=== PATIENT | male | born 1975 ===

== ENCOUNTER 2020-06-24 14:32 | Outpatient (REF) | payer OTHER, SELFPAY | END 2020-06-24 14:33 | disposition home or self-care (01) | LOC: HO.LAB 14:32 | PROVIDERS: PCP Student in an Organized Health Care Education/Training Program; Visit Provider Internal Medicine | DX: Z20.828 Contact with and (suspected) exposure to other viral communicable diseases (principal) | CPT/HCPCS: C9803; U0003 ==

== ENCOUNTER 2023-05-31 08:15 | Outpatient (REF) | payer OTHER, SELFPAY ==
[2023-05-31 12:07] LABS: Anion Gap 16 (12-20); Blood Urea Nitrogen 11 mg/dL (9-16); Carbon Dioxide 24 mmol/L (22-29); Chloride 100 mmol/L (96-108); Cholesterol 123 mg/dL (<200); Estimated Glomerular Filt Rate > 60; Glucose Random 147 mg/dL (60-115); HDL Cholesterol 38 mg/dL (>40); LDL Cholesterol Calculated 70 mg/dL (<100); Potassium 4.1 mmol/L (3.3-5.1); Sodium 136 mmol/L (135-145); Triglycerides 76 mg/dL (<150)
== END 2023-05-31 08:16 | disposition home or self-care (01) ==
LOC: HO.HHCL 08:15
PROVIDERS: Visit Provider Student in an Organized Health Care Education/Training Program
DX: E11.9 Type 2 diabetes mellitus without complications (principal)
CPT/HCPCS: 36415; 80048; 80061

== ENCOUNTER → 2023-09-05 14:17 | Outpatient (BNVA) | payer OTHER, SELFPAY | PROVIDERS: PCP Student in an Organized Health Care Education/Training Program; Visit Provider Nurse Practitioner Family ==

== ENCOUNTER 2023-10-05 08:07 | Outpatient (REF) | payer OTHER, SELFPAY ==
[2023-10-05 12:13] LABS: Creatinine Urine 105.03 mg/dL; Microalbum/Creatinine Ratio Ur 11.4 ug/mg cr (<30)
== END 2023-10-05 08:08 | disposition home or self-care (01) ==
LOC: HO.HHCL 08:07
PROVIDERS: Visit Provider Student in an Organized Health Care Education/Training Program
DX: E11.9 Type 2 diabetes mellitus without complications (principal)
CPT/HCPCS: 82043; 82570

== ENCOUNTER 2023-11-21 08:16 | Outpatient (REF) | payer OTHER, SELFPAY ==
[2023-11-21 12:13] LABS: Creatinine Urine 65.77 mg/dL; Microalbum/Creatinine Ratio Ur 10.6 ug/mg cr (<30)
[2023-11-21 12:14] LABS: Estimated Average Glucose 148 mg/dL; Hemoglobin A1C 180.6791 umol/L; Hemoglobin A1c % 6.8 % (<6.0)
[2023-11-21 12:19] LABS: Alanine Aminotransferase 65 U/L (0-40); Albumin Level 4.6 g/dL (3.5-5.0); Alkaline Phosphatase 48 U/L (39-117); Anion Gap 13 (12-20); Aspartate Amino Transferase 33 U/L (5-37); Bilirubin Direct 0.2 mg/dL (0.0-0.5); Bilirubin Total 0.4 mg/dL (0.0-1.0); Blood Urea Nitrogen 16 mg/dL (9-16); Calcium 9.3 mg/dL (8.4-10.2); Carbon Dioxide 27 mmol/L (22-29); Chloride 99 mmol/L (96-108); Cholesterol 129 mg/dL (<200); Estimated Glomerular Filt Rate > 60; Glucose Random 132 mg/dL (60-115); HDL Cholesterol 39 mg/dL (>40); LDL Cholesterol Calculated 64 mg/dL (<100); Potassium 4.3 mmol/L (3.3-5.1); Sodium 135 mmol/L (135-145); Total Protein 7.6 g/dL (6.5-8.0); Triglycerides 134 mg/dL (<150)
== END 2023-11-21 08:17 | disposition home or self-care (01) ==
LOC: HO.HHCL 08:16
PROVIDERS: Visit Provider Student in an Organized Health Care Education/Training Program
DX: E11.9 Type 2 diabetes mellitus without complications (principal)
CPT/HCPCS: 36415; 80048; 80061; 80076; 82043; 82570; 83036

== ENCOUNTER 2023-12-21 12:44 | Outpatient (AMB) | payer OTHER, SELFPAY ==
[2023-12-21 12:52] VITALS: BP 118/72; PULSE 83; RESP 17; O2SAT 98; BMI 39.5
--- NOTE | 2023-12-21 12:52 | A.OFFVIS_ITS ---
Vital Signs 12/21/23 12:52 Height 5 ft 2 in Weight 216 lb 2 oz BMI 39.5 BP 118/72 Blood Pressure Location Rt brachial Position Sitting Respiration 17 Pulse 83 Pulse Source Pulse Oximeter Pulse Oximetry (%) 98 Oxygen Delivery Method Room Air Intake Visit Reasons: ENP OMAR - Confirmed Intake Note: Pt presents to the office for new pt evaluation for snoring, morning headaches and gasping for air throughout the night. Switchboard Operator Supervisor Required: Yes Switchboard Operator Supervisor Name: Isabela Marquis Allergies No Known Allergies Allergy (Verified 09/05/23 14:21) Medication List - Last Reconciled 12/21/23 by Peyton Aponte MD aspirin 81 mg PO DAILY bisacodyl (Dulcolax (bisacodyl)) 20 mg (4 x 5 mg) PO ONCE 1 day blood sugar diagnostic (FreeStyle Lite Strips) As directed ergocalciferol (vitamin D2) 1,250 mcg PO QWEEK glipizide 5 mg PO BID hydrochlorothiazide 25 mg PO DAILY lancets (TRUEplus Lancets) As directed lisinopril 20 mg PO DAILY metformin 1,000 mg PO BID polyethylene glycol 3350 (Miralax) 238 grams PO ONCE rosuvastatin 5 mg PO DAILY HPI Comments Details: Isabeal Salazar- a certified gate technician helped during todays evaluation. 48y/o male comes for sleep evaluation . Main complaints- Sleep questionnaire- Difficulty falling asleep-yes Difficulty staying asleep-yes Number of arousals-3 Snoring-yes/ Witnessed apneas-no Gasping arousals-no Nocturia-yes/ GERD-/no Vivid dreams-no Acting out dreams -no Abnormal behavior in sleep-no ABnormal movements in sleep-yes- leg cramps , wakes him up Morning headaches-yes Excessive daytime sleepiness-yes Daytime naps- yes restless legs- yes Hallucinations- no Sleep study-no Sleep Hygiene- Sleep time- 11pm Wake time -8am coffee/stimulant use-1 cup am and 1 cup 8 pm Phone Electronics use- yes Exercise-no Bedroom comfort -yes [facility] Medical History (Updated 12/21/23 @ 13:21 by Peyton Aponte MD) Hypersomnia Snoring Leg cramps, sleep related Diabetes mellitus HTN (hypertension) Hyperlipidemia Family History (Updated 12/21/23 @ 12:58 by Isabela Salazar CMA) Mother No problems noted. Father Diabetes Depression Cardiovascular disease Social History (Updated 12/21/23 @ 12:59 by Isabela Salazar CMA) Household Members: Other Household Members Other:: Siblings, Sister Kendal, brother Drew Housing: Apartment Alcohol intake: never Patient Tobacco Use Status: Never used Tobacco Substance Use Type: Marijuana Physical Exam Vital Signs: Last Vital Signs Pulse 83 12/21/23 12:52 Resp 17 12/21/23 12:52 BP 118/72 12/21/23 12:52 Pulse Ox 98 12/21/23 12:52 Oxygen Delivery Method Room Air 12/21/23 12:52 BMI result Body Mass Index 39.5 Const General: cooperative, healthy appearing and comfortable Nutritional Appearance: obese Orientation/consciousness: patient oriented x3 Limitations: no limitations Eyes Pupils: Equal, round and reactive pupils present Neuro Other: Mallampatti grade 4 General: patient oriented x3, gait normal, tone normal, moves all extremities and no focal motor deficits Cranial nerves: Yes Equal, round and reactive pupils present, Yes Bilaterally intact EOM present and Yes Normal facial strength present Cognition (Neuro): normal cognition Gait exam (Neuro): Normal gait present Assessment & Plan Assessment & Plan (1) Snoring: Code(s): R06.83 - Snoring Category: Medical (2) Hypersomnia: Code(s): G47.10 - Hypersomnia, unspecified Category: Medical (3) Leg cramps, sleep related: Code(s): G47.62 - Sleep related leg cramps Category: Medical Plan Home sleep test to r/o sleep apnea. check ferritin, tsh , b12 , Vit D will consider gabapentin Orders: Orders TSH reflex Free T4 Today G47.62 - Sleep related leg cramps Vitamin B12 and Folate Today G47.62 - Sleep related leg cramps Vitamin D 25-OH (D2 and D3) Today G47.62 - Sleep related leg cramps Ferritin Today G47.62 - Sleep related leg cramps RT home sleep study Today G47.10 - Hypersomnia, unspecified, G47.62 - Sleep related leg cramps, R06.83 - Snoring Coding Level of Care Code New Pt Level 3 (34746) Diagnoses Snoring R06.83 Hypersomnia G47.10 Leg cramps, sleep related G47.62 Rattan Sleepiness Scale Questions Sitting and reading: would never doze Watching TV: moderate chance of dozing Sitting inactive in a theater, movie etc.: would never doze As a passenger in a car for an hour without break: moderate chance of dozing Lying down in the afternoon when circumstances permit: moderate chance of dozing Sitting and talking to someone: would never doze Sitting quietly after lunch without alcohol: slight chance of dozing In a car, while stopped for a few minutes in the traffic: would never doze ESS < 10: normal, ESS > 12: pathologic: 7
== END 2023-12-21 13:30 | disposition home or self-care (01) ==
PROVIDERS: Absent Provider Nurse Practitioner Family; PCP Student in an Organized Health Care Education/Training Program; Visit Provider Psychiatry & Neurology Neurology
DX: R06.83 Snoring (principal); G47.10 Hypersomnia, unspecified; G47.62 Sleep related leg cramps
CPT/HCPCS: 99203

== ENCOUNTER 2023-12-21 13:28 | Outpatient (REF) | payer OTHER, SELFPAY ==
[2023-12-21 18:33] LABS: Ferritin 43 ng/mL (20-250); TSH reflex Free T4 4.48 uIU/mL (0.32-4.0)
[2023-12-21 18:44] LABS: Vitamin B12 391 pg/mL (200-900)
[2023-12-21 20:19] LABS: Free T4 (Free Thyroxine) 0.86 ng/dL (0.71-1.85)
[2023-12-25 16:14] LABS: Vitamin D 25-OH, D2 65 ng/mL; Vitamin D 25-OH, D3 6 ng/mL; Vitamin D 25-OH, Total 71 ng/mL (30-100)
== END 2023-12-21 13:29 | disposition home or self-care (01) ==
LOC: HO.HKASLDS 13:28
PROVIDERS: Visit Provider Psychiatry & Neurology Neurology
DX: G47.62 Sleep related leg cramps (principal); R06.83 Snoring; G47.10 Hypersomnia, unspecified
CPT/HCPCS: 36415; 82306; 82607; 82728; 82746; 84439; 84443; 99202

== ENCOUNTER 2024-01-03 07:30 | Day surgery (SDC) | payer OTHER, SELFPAY ==
[2024-01-02 06:38] VITALS: BMI 40.2
--- NOTE | 2024-01-02 12:01 | HO.ANESPROP2 ---
Documented by User: Emily Espinoza NP 01/02/24 12:01 HPI - Anesthesia Eval Consult details Narrative: 48yo M for Colonoscopy PMFSH Active Problems Active Problems: All Active Problems Hypersomnia (Acute) Snoring (Acute) Leg cramps, sleep related (Acute) Past Medical History Medical History (Updated 12/21/23 @ 13:21 by Peyton Aponte MD) Hypersomnia Snoring Leg cramps, sleep related Diabetes mellitus HTN (hypertension) Hyperlipidemia Family History Family History (Updated 12/21/23 @ 12:58 by Isabela Salazar CMA) Mother No problems noted. Father Diabetes Depression Cardiovascular disease Social History Social History (Updated 12/21/23 @ 12:59 by Isabela Salazar CMA) Household Members: Other Household Members Other:: Siblings, Sister Kendal, brother Drew Housing: Apartment Alcohol intake: never Patient Tobacco Use Status: Former Tobacco user Use of substances other than those prescribed or required for medical reasons: Yes Substance Use Type: Marijuana Are you DNR?: No Advance Directives: No Advance Directives Information Provided: Yes Meds Allergies Allergy/AdvReac Type Severity Reaction Status Date / Time No Known Allergies Allergy Verified 09/05/23 14:21 Home Medications ?Medication ?Instructions ?Recorded ?Confirmed ?Last Taken ?Type aspirin 81 mg tablet,delayed 81 mg PO DAILY 09/05/23 12/21/23 Unknown History release blood sugar diagnostic (FreeStyle #10 ea 09/05/23 12/21/23 Unknown History Lite Strips) ergocalciferol (vitamin D2) 1,250 1,250 mcg PO QWEEK 09/05/23 12/21/23 Unknown History mcg (50,000 unit) capsule glipizide 5 mg tablet 5 mg PO BID 09/05/23 12/21/23 Unknown History hydrochlorothiazide 25 mg tablet 25 mg PO DAILY 09/05/23 12/21/23 Unknown History lancets 33 gauge (TRUEplus Lancets) #100 ea 09/05/23 12/21/23 Unknown History lisinopril 20 mg tablet 20 mg PO DAILY 09/05/23 12/21/23 Unknown History metformin 1,000 mg tablet 1,000 mg PO BID 09/05/23 12/21/23 Unknown History rosuvastatin 5 mg tablet 5 mg PO DAILY 09/05/23 12/21/23 Unknown History Exam Height,Weight and Vital Signs: Height 5 ft 2 in Weight 99.79 kg Assessment and Plan Assessment Anesthesia Assessment: Chart Reviewed Documented by User: Jacki Baez MD 01/03/24 08:38 [facility] Past Medical History Medical History (Updated 12/21/23 @ 13:21 by Peyton Aponte MD) Hypersomnia Snoring Leg cramps, sleep related Diabetes mellitus HTN (hypertension) Hyperlipidemia Family History Family History (Updated 12/21/23 @ 12:58 by Isabela Salazar CMA) Mother No problems noted. Father Diabetes Depression Cardiovascular disease Family history of problems with anesthesia: No Surgical History History of Problems with Anesthesia: No Social History Social History (Updated 12/21/23 @ 12:59 by Isabela Salazar CMA) Household Members: Other Household Members Other:: Siblings, Sister Kendal, brother Drew Housing: Apartment Alcohol intake: never Patient Tobacco Use Status: Former Tobacco user Use of substances other than those prescribed or required for medical reasons: Yes Substance Use Type: Marijuana Are you DNR?: No Advance Directives: No Advance Directives Information Provided: Yes Meds Allergies Allergy/AdvReac Type Severity Reaction Status Date / Time No Known Allergies Allergy Verified 09/05/23 14:21 Home Medications ?Medication ?Instructions ?Recorded ?Confirmed ?Last Taken ?Type aspirin 81 mg tablet,delayed 81 mg PO DAILY 09/05/23 12/21/23 Unknown History release blood sugar diagnostic (FreeStyle #10 ea 09/05/23 12/21/23 Unknown History Lite Strips) ergocalciferol (vitamin D2) 1,250 1,250 mcg PO QWEEK 09/05/23 12/21/23 Unknown History mcg (50,000 unit) capsule glipizide 5 mg tablet 5 mg PO BID 09/05/23 12/21/23 Unknown History hydrochlorothiazide 25 mg tablet 25 mg PO DAILY 09/05/23 12/21/23 Unknown History lancets 33 gauge (TRUEplus Lancets) #100 ea 09/05/23 12/21/23 Unknown History lisinopril 20 mg tablet 20 mg PO DAILY 09/05/23 12/21/23 Unknown History metformin 1,000 mg tablet 1,000 mg PO BID 09/05/23 12/21/23 Unknown History rosuvastatin 5 mg tablet 5 mg PO DAILY 09/05/23 12/21/23 Unknown History Exam Airway Mallampati Class: II TM Dist: >3cm Neck ROM: Full Partial: Lower Heart: rrr Lungs: cta Assessment and Plan Assessment Anesthesia Assessment: Anesthesia Plan Discussed Final Anesthetic Review Family History of Problems with Anesthesia: No History of Problems with Anesthesia: No NPO: Yes ASA Class: II Final Preanesthetic Review: No Changes in Pt Med Stat, Meds/Allgs Chart Reviewed and Consent Obtained/Reviewed Patient Risk: Low Procedure Risk: Low Anesthetic Plan Anesthetic Plan: MAC: Disposition: Standard PACU
[2024-01-03 08:24] VITALS: BMI 39.2
[2024-01-03 08:26] VITALS: BP 121/73; PULSE 67; RESP 16; TEMP 36.6; O2SAT 96
[2024-01-03 08:37] LABS: Glucose, Whole Blood 136 mg/dL (60-115)
[2024-01-03] MEDS: Lactated Ringers 1,000 ML 100 ML IVCONT (08:44)
--- NOTE | 2024-01-03 09:05 | MHC.SHP ---
Pre-Procedural Eval Section A - 24 Hr Update-Section A only Date of Service: 01/03/24 Section B - Complete if H&P > 30 days Chief Complaint: Encounter for screening for malignant neoplasm of Relevant Family History (Specify if Yes): No Relevant Social History: Other (specify) (thc) Present Medications: see Short Stay Collaborative assessment Medical History: Significant History (Hypersomnia Snoring Leg cramps, sleep related Diabetes mellitus HTN (hypertension) Hyperlipidemia) History of Previous Operations: No relevant previous surgery Allergies: Allergies Allergy/AdvReac Type Severity Reaction Status Date / Time No Known Allergies Allergy Verified 09/05/23 14:21 Review of Systems Sugical H&P ROS: Negative: Constitution, Cardiovascular, Respiratory, Neurological, Psychiatric, Hem-Onc, Allergic/Immunologic, Gastrointestinal, Genitourinary, Musculoskeletal, Integumentary, Endocrine and Eyes/Ears/Nose/Throat Exam Surgical H&P Exam: Normal: HEENT, Normal: Heart, Normal: Lungs, Normal: Extremities, Normal: Abdomen, Normal: Skin and Normal: Neurological Plan Diagnosis/Plan: Unchanged I have reviewed the history and physical and performed a pertinent physical examination on my patient. No changes have occurred unless specified. Time Spent With Patient Time: Total time managing care of this patient today ____ minutes.
--- NOTE | 2024-01-03 09:34 | P.OPN-COLO_ITS ---
Colonoscopy Operative Note Operative Note Date of Service: 01/03/24 Narrative: Operative Information Procedure Description: Colonoscopy Indication: screening Anesthesia: MAC COLONOSCOPY Instrument: Olympus variable stiffness Adult scope 190L Colonoscopy Monitoring: Vital signs and clinical assessment, continuous EKG monitoring, Pulse oximetry, Carbon Dioxide monitoring and blood pressure monitoring were done throughout the procedure. Colon withdrawal time was 9 minutes. Procedure: The patient was placed in the left lateral decubitis position and pre-procedure medications were administered. After a digital rectal examination of the ano-rectum, the video colonoscope was inserted into the rectum and advanced through the colon to the cecum/TI. The colonoscope was slowly withdrawn in a retrograde panoramic fashion and the colon mucosa was carefully examined including a retroflexed view of the rectum. Findings and interventions are described below. Procedure Difficulty: easy Findings: Terminal Ileum-normal Cecum:normal Ascending Colon: normal Transverse Colon -normal Descending Colon:normal Sigmoid Colon: normal Rectum: Retroflexion with small internal hemorrhoids seen, grade I Anorectum - normal Intervention: none Colon preparation: [place] Bowel Preparation Scale Right colon; 1-2 Transverse colon: 2 Left colon; 3 (0 = Unprepared colon segment with mucosa not seen due to solid stool that cannot be cleared. 1 = Portion of mucosa of the colon segment seen, but other areas of the colon segment not well seen due to staining, residual stool and/or opaque liquid. 2 = Minor amount of residual staining, small fragments of stool and/or opaque liquid, but mucosa of colon segment seen well. 3 = Entire mucosa of colon segment seen well with no residual staining, small fragments of stool or opaque liquid) Impression and Post Procedure Diagnosis: internal hemorrhoids Plan: High fiber diet leaflet Avoid straining at stool, epsom salts and sitz bath, anusol supps or cream Repeat Colonoscopy in 5-6 years due to some areas of pair prep on the right side or earlier if clinically indicated Above findings were reviewed with the patient and relevant handouts were provided if indicated.
[2024-01-03 09:39] VITALS: BP 111/70; PULSE 89; RESP 16; TEMP 36.4; O2SAT 93
[2024-01-03 09:52] VITALS: BP 115/79; PULSE 67; RESP 16; TEMP 36.6; O2SAT 100
== END 2024-01-03 10:21 | disposition home or self-care (01) ==
PROVIDERS: PCP Student in an Organized Health Care Education/Training Program; Visit Provider Internal Medicine Gastroenterology
PROC: 0DJD8ZZ Inspection of Lower Intestinal Tract, Via Natural or Artificial Opening Endoscopic (ICD-10-PCS; CPT 45378; principal; 2024-01-03 09:20)
DX: Z12.11 Encounter for screening for malignant neoplasm of colon (principal); K64.0 First degree hemorrhoids; E11.9 Type 2 diabetes mellitus without complications; I10 Essential (primary) hypertension; E78.5 Hyperlipidemia, unspecified; Z87.891 Personal history of nicotine dependence; Z79.84 Long term (current) use of oral hypoglycemic drugs; Z79.82 Long term (current) use of aspirin; Z79.899 Other long term (current) drug therapy; Z79.02 Long term (current) use of antithrombotics/antiplatelets
CPT/HCPCS: G0121; 82947; J2704

== ENCOUNTER → 2024-01-03 07:30 | Outpatient (BNV) | payer OTHER, SELFPAY | PROVIDERS: PCP Student in an Organized Health Care Education/Training Program; Visit Provider Internal Medicine Gastroenterology | DX: Z12.11 Encounter for screening for malignant neoplasm of colon (principal); K64.0 First degree hemorrhoids | CPT/HCPCS: G0121 ==

== ENCOUNTER 2024-01-17 09:07 | Outpatient (AMB) | payer OTHER, SELFPAY ==
--- NOTE | 2024-01-17 09:29 | A.OFFVIS_ITS ---
Vital Signs 01/17/24 09:35 Height 5 ft 2 in Weight 213 lb 6.519 oz BMI 39.0 BP 138/82 Blood Pressure Location Lt brachial Position Sitting Pulse 70 Pulse Source Pulse Oximeter Pulse Oximetry (%) 98 Oxygen Delivery Method Room Air Intake Visit Reasons: S/P Screening; Dr Mahmood Intake Note: Donaldo presents in office today for a colo sp FUV CC; Pt denies any new sx or significant concerns since their colo sp. Pt states that they are strictly here to discuss the test results. Riveter Portable Machine Required: Yes Riveter Portable Machine Name: [id number] Justine Allergies No Known Allergies Allergy (Verified 01/17/24 09:33) HPI HPI S/P Screening; Dr Mahmood: Details: LAST VISIT: Screen for colon cancer Plan Patient denies any GI, cardiac or respiratory symptoms.? Patient never had anesthesia in the past.? Denies any history of sleep apnea.? No history infectious diseases in the past or present.? Patient is on low-dose aspirin.? No family or personal history of colon cancer or polyps.? Patient denies melena, hematochezia, unintentional weight loss or ribbon like stools.? Discussed at length the pre-procedure,? prep, diet & medications as well as what to expect prior, during and after the procedure.?? Stressed the importance of good bowel prep. ?Recommended the use of Vaseline or Calmoseptine OTC & baby wipes with bowel movements to promote comfort.? ?Patient verbalizes understanding and agrees to plan of care.? He was given the opportunity to ask questions and all questions answered.? We will see him after the procedure.? Medications New bisacodyl (Dulcolax (bisacodyl)) take 4 tabs at noon the day before your colonoscopy 20 mg (4 x 5 mg) PO ONCE 1 day 4 tabs 0RF Z12.11 polyethylene glycol 3350 (Miralax) As directed by gastroenterology department at [facility] 238 grams PO ONCE 238 grams 0RF Z12.11 COLONOSCOPY Findings: Terminal Ileum-normal Cecum:normal Ascending Colon: normal Transverse Colon -normal Descending Colon:normal Sigmoid Colon: normal Rectum: Retroflexion with small internal hemorrhoids seen, grade I Anorectum - normal Intervention: none Colon preparation: [place] Bowel Preparation Scale Right colon; 1-2 Transverse colon: 2 Left colon; 3 (0 = Unprepared colon segment with mucosa not seen due to solid stool that cannot be cleared. 1 = Portion of mucosa of the colon segment seen, but other areas of the colon segment not well seen due to staining, residual stool and/or opaque liquid. 2 = Minor amount of residual staining, small fragments of stool and/or opaque liquid, but mucosa of colon segment seen well. 3 = Entire mucosa of colon segment seen well with no residual staining, small fragments of stool or opaque liquid) Impression and Post Procedure Diagnosis: internal hemorrhoids Plan: High fiber diet leaflet Avoid straining at stool, epsom salts and sitz bath, anusol supps or cream Repeat Colonoscopy in 5-6 years due to some areas of pair prep on the right side or earlier if clinically indicated TODAY'S VISIT Patient is here today for follow-up and to discuss colonoscopy results. Patient denies any ill effects from the prep, anesthesia or procedure itself gave patient denies any melena, hematochezia. No polyps found, however patient did have suboptimal prep and recommendation was made for patient to return for colorectal screening in 5 years, sooner if clinically necessary. Patient denies any GI concerning symptoms. Denies any dyspepsia, dysphagia or odynophagia. Reports to be doing well. Patient denies any family history of colorectal cancer. [facility] Medical History Hypersomnia Snoring Leg cramps, sleep related Diabetes mellitus HTN (hypertension) Hyperlipidemia Surgical History Hx of colonoscopy Family History Mother No problems noted. Father Diabetes Depression Cardiovascular disease Social History Household Members: Other Household Members Other:: Siblings, Sister Kendal, brother Drew Housing: Apartment Alcohol intake: never Patient Tobacco Use Status: Former Tobacco user Substance Use Type: Marijuana Review of Systems Const Denies weight gain and Denies weight loss ENT Reports no additional complaints, Denies dysphagia and Denies odynophagia Card Reports no additional complaints Resp Reports no additional complaints GI Denies abdominal pain, Denies belching, Denies melena, Denies bloating, Denies change in bowel habits, Denies dysphagia, Denies excessive flatus, Denies dyspepsia, Denies heartburn, Denies diarrhea, Denies loose stools, Denies nausea, Denies odynophagia and Denies vomiting Reports no additional complaints Musc Reports no additional complaints Neuro Reports no additional complaints Psych Reports no additional complaints Endo Reports no additional complaints Physical Exam Vital Signs: Last Vital Signs Pulse 70 01/17/24 09:35 BP 138/82 01/17/24 09:35 Pulse Ox 98 01/17/24 09:35 Oxygen Delivery Method Room Air 01/17/24 09:35 BMI result Body Mass Index 39.0 Const General: healthy appearing and no acute distress Nutritional Appearance: obese Orientation/consciousness: patient oriented x3 Resp Effort & Inspection: normal respiratory effort, able to speak in complete sentences, no tracheal deviation and symmetric chest movement Auscultation: clear to auscultation bilaterally Cardio Rate: regular rate GI Inspection: Yes normal to inspection, No distended and Yes obesity Palpation (GI): Soft to palpation, not firm, nontender and No hepatosplenomegaly present Auscultation: normal bowel sounds General: Yes no CVA tenderness Back/Spine/Pelvis Back: no CVA tenderness Skin General skin exam: elasticity normal, turgor normal and dry skin Neuro General: patient oriented x3 Psych Appearance: grossly normal Mental Status: mental status grossly normal Assessment & Plan Assessment & Plan (1) Status post colonoscopy: Code(s): Z98.890 - Other specified postprocedural states Plan Repeat colonoscopy in 5 years, sooner if clinically necessary. No polyps found, however patient had suboptimal prep. Patient is agreeable to plan of care and verbalizes understanding of instructions. He was given the opportunity to ask questions and all questions answered. Thank you for allowing me to participate in his care Coding Level of Care Code Est Pt Level 3 (05421) Diagnoses Status post colonoscopy Z98.890 Time Spent (min) 25 Comment 15 minutes spent with patient and additional 10 minutes spent reviewing his records
[2024-01-17 09:35] VITALS: BP 138/82; PULSE 70; O2SAT 98; BMI 39.0
== END 2024-01-17 10:49 | disposition home or self-care (01) ==
PROVIDERS: PCP Student in an Organized Health Care Education/Training Program; Visit Provider Nurse Practitioner Family
DX: Z98.890 Other specified postprocedural states (principal)
CPT/HCPCS: 99213

== ENCOUNTER → 2024-01-17 09:07 | Outpatient (BNVA) | payer OTHER, SELFPAY | PROVIDERS: PCP Student in an Organized Health Care Education/Training Program; Visit Provider Nurse Practitioner Family | DX: Z98.890 Other specified postprocedural states (principal) | CPT/HCPCS: 99212 ==

== ENCOUNTER → 2024-01-29 15:33 | Outpatient (REF) | payer OTHER, SELFPAY | LOC: HO.SL 15:33 | PROVIDERS: PCP Student in an Organized Health Care Education/Training Program; Visit Provider Psychiatry & Neurology Neurology | DX: G47.33 Obstructive sleep apnea (adult) (pediatric) (principal); G47.62 Sleep related leg cramps; R06.83 Snoring; G47.10 Hypersomnia, unspecified | CPT/HCPCS: 95806 ==

== ENCOUNTER → 2024-01-29 15:50 | Outpatient (BNV) | payer OTHER, SELFPAY | PROVIDERS: PCP Student in an Organized Health Care Education/Training Program; Visit Provider Psychiatry & Neurology Neurology | DX: G47.33 Obstructive sleep apnea (adult) (pediatric) (principal) | CPT/HCPCS: 95806 ==

== ENCOUNTER 2024-05-01 09:10 | Outpatient (AMB) | payer OTHER, SELFPAY ==
--- NOTE | 2024-05-01 09:13 | A.OFFVIS_ITS ---
Vital Signs 05/01/24 09:16 Height 5 ft 2 in Weight 210 lb BMI 38.4 BP 136/70 Blood Pressure Location Rt brachial Position Sitting Respiration 16 Pulse 80 Pulse Source Pulse Oximeter Pulse Oximetry (%) 98 Oxygen Delivery Method Room Air Intake Visit Reasons: follow up OMAR Intake Note: Pt presents for a 4 month follow up for OMAR. Electrical High Tension Tester Required: Yes Electrical High Tension Tester Services: Electrical High Tension Tester Present Electrical High Tension Tester Name: Isabela Marquis CMA Allergies No Known Allergies Allergy (Verified 05/01/24 09:16) HPI Comments Details: 48y/o male comes for follow up of OMAR. Sleep study was done on- Home sleep test 01/29/24 Results- AHI 28 O2 eitan 70% He is using his CPAP regularly . Resmed had some technical issues and i was unable to download his compliance . Sleeps better with CPAP and daytime functioning has improved. Leg movements are better. [facility] Medical History (Updated 05/01/24 @ 09:30 by Peyton Aponte MD) Obstructive sleep apnea hypopnea, severe Hypersomnia Snoring Leg cramps, sleep related Diabetes mellitus HTN (hypertension) Hyperlipidemia Surgical History Hx of colonoscopy Family History Mother No problems noted. Father Diabetes Depression Cardiovascular disease Social History Household Members: Other Household Members Other:: Siblings, Sister Kendal, brother Drew Housing: Apartment Alcohol intake: never Patient Tobacco Use Status: Former Tobacco user Substance Use Type: Marijuana Physical Exam Vital Signs: Last Vital Signs Pulse 80 05/01/24 09:16 Resp 16 05/01/24 09:16 BP 136/70 05/01/24 09:16 Pulse Ox 98 05/01/24 09:16 Oxygen Delivery Method Room Air 05/01/24 09:16 BMI result Body Mass Index 38.4 Const General: cooperative, healthy appearing and comfortable Nutritional Appearance: obese Orientation/consciousness: patient oriented x3 Limitations: no limitations Neuro Other: Mallampatti grade 4 General: patient oriented x3, gait normal, tone normal, moves all extremities and no focal motor deficits Gait exam (Neuro): Normal gait present Assessment & Plan Assessment & Plan (1) Obstructive sleep apnea hypopnea, severe: Code(s): G47.33 - Obstructive sleep apnea (adult) (pediatric) Category: Medical Plan Continue AutoPAP 5-20 compliance stressed sleep study results discussed. Coding Level of Care Code Est Pt Level 4 (79799) Diagnoses Obstructive sleep apnea hypopnea, severe G47.33
[2024-05-01 09:16] VITALS: BP 136/70; PULSE 80; RESP 16; O2SAT 98; BMI 38.4
== END 2024-05-01 09:32 | disposition home or self-care (01) ==
PROVIDERS: PCP Student in an Organized Health Care Education/Training Program; Visit Provider Psychiatry & Neurology Neurology
DX: G47.33 Obstructive sleep apnea (adult) (pediatric) (principal)
CPT/HCPCS: 99214

== ENCOUNTER → 2024-05-01 09:10 | Outpatient (BNVA) | payer OTHER, SELFPAY | PROVIDERS: PCP Student in an Organized Health Care Education/Training Program; Visit Provider Psychiatry & Neurology Neurology | DX: G47.33 Obstructive sleep apnea (adult) (pediatric) (principal) | CPT/HCPCS: 99212 ==

== ENCOUNTER 2024-07-02 12:59 | Outpatient (AMB) | payer OTHER, SELFPAY ==
--- NOTE | 2024-07-02 13:37 | A.OFFVIS_ITS ---
Vital Signs 07/02/24 13:38 Height 5 ft 2 in Weight 210 lb BMI 38.4 Intake Visit Reasons: follow up OMAR Intake Note: Patient presents for follow up OMAR Allergies No Known Allergies Allergy (Verified 07/02/24 13:40) Medication List - Last Reconciled 07/02/24 by Claudia Langston PA-C aspirin 81 mg PO DAILY blood sugar diagnostic (FreeStyle Lite Strips) As directed empagliflozin (Jardiance) 10 mg PO DAILY ergocalciferol (vitamin D2) 1,250 mcg PO QWEEK glipizide 5 mg PO BID hydrochlorothiazide 25 mg PO DAILY lancets (TRUEplus Lancets) As directed lisinopril 20 mg PO DAILY metformin 1,000 mg PO BID rosuvastatin 10 mg PO BEDTIME HPI Comments Details: 48 y/o male comes for follow up of OMAR. Sleep study was done on- Home sleep test 01/29/24 Results- AHI 28 O2 eitan 70%, severe sleep apnea. His compliance report today is poor due to issues with the mask. >4hours a night 23%, Average use is 2 hours and 57 min, Pressures are 5-20cm H20, Leaks 23.6 - 113.9, AHI 8.4. He is not able to use his CPAP regularly. He experiences less nightly leg movements with the CPAP, he sleeps much better with the CPAP. He is gasping for air, and choking, wakes up at 3am notices his mask is not on his face. He is waking up with headaches in the morning 2-3 times a week, and has excessive daytime sleepiness. He snores loudly and complains about the mask and straps not fitting well. He denies sleep walking and parasomnias. We discussed sending him for a mask fitting for better quality of sleep. [facility] Medical History Obstructive sleep apnea hypopnea, severe Hypersomnia Snoring Leg cramps, sleep related Diabetes mellitus HTN (hypertension) Hyperlipidemia Surgical History Hx of colonoscopy Family History Mother No problems noted. Father Diabetes Depression Cardiovascular disease Social History Household Members: Other Household Members Other:: Siblings, Sister Kendal, brother Drew Housing: Apartment Alcohol intake: never Patient Tobacco Use Status: Former Tobacco user Substance Use Type: Marijuana Review of Systems Const All systems reviewed & are unremarkable except as noted in HPI and below Reports daytime sleepiness and Reports fatigue ENT Reports Normal hearing present Neuro Reports Normal hearing present Endo Reports fatigue Physical Exam Vital Signs: BMI result Body Mass Index 38.4 Const General: cooperative, comfortable and no acute distress Nutritional Appearance: obese Orientation/consciousness: patient oriented x3 HEENT Head: Yes normal to inspection Face and sinus: Yes face symmetric Mouth: tongue normal Eyes Pupils: Equal, round and reactive pupils present Neck Neck: Yes full ROM and Yes supple Resp Effort & Inspection: normal respiratory effort and able to speak in complete sentences Neuro General: patient oriented x3, moves all extremities and Normal light touch and pain sensation Cranial nerves: Yes CN's II-XII intact bilaterally, Yes Facial sensation intact/muscles of mastication intact, Yes Equal, round and reactive pupils present, Yes Normal accommodation reflex present, Yes Normal facial strength present, Yes Midline tongue present, Yes Symmetric palate elevation present, Yes Normal hearing present, Yes Ability to bilaterally rotate head present and Yes Ability to bilaterally elevate shoulders present Motor exam (neuro): 5/5 motor strength present throughout Deep tendon reflexes (DTR's): Right triceps reflex intensity grade: 2+, Left triceps reflex intensity grade: 2+, Rt Biceps (C5, C6): 2+, Left biceps reflex intensity grade: 2+, Right brachioradialis reflex intensity grade: 2+, Left brachioradialis reflex intensity grade: 2+, Right patellar reflex intensity grade: 2+, Left patellar reflex intensity grade: 2+, Right ankle reflex int ensity grade: 2+ and Left ankle reflex intensity grade: 2+ Coordination: [id number] test normal Psych Affect: normal affect Attitude: cooperative Assessment & Plan Assessment & Plan (1) Obstructive sleep apnea hypopnea, severe: Code(s): G47.33 - Obstructive sleep apnea (adult) (pediatric) Category: Medical Plan Patient continues to have headaches in the morning and feels excessive daytime sleeping. Will send him for a mask fitting, as the straps continue to come undone and the mask leaks at night. Patient education on sleep compliance as patient has a BMI of 38.4, hypertension and diabetes. Coding Level of Care Code Est Pt Level 3 (10242) Diagnoses Obstructive sleep apnea hypopnea, severe G47.33
[2024-07-02 13:38] VITALS: BMI 38.4
== END 2024-07-02 14:00 | disposition home or self-care (01) ==
PROVIDERS: Absent Provider Physician Assistant Medical; PCP Student in an Organized Health Care Education/Training Program; Visit Provider Physician Assistant Medical
DX: G47.33 Obstructive sleep apnea (adult) (pediatric) (principal)
CPT/HCPCS: 99213

== ENCOUNTER → 2024-07-02 12:59 | Outpatient (BNVA) | payer OTHER, SELFPAY | PROVIDERS: Absent Provider Physician Assistant Medical; PCP Student in an Organized Health Care Education/Training Program; Visit Provider Physician Assistant Medical | DX: G47.33 Obstructive sleep apnea (adult) (pediatric) (principal) | CPT/HCPCS: 99212 ==

== ENCOUNTER → 2024-08-02 19:30 | Outpatient (REF) | payer OTHER, SELFPAY | LOC: HO.SL 19:30 | PROVIDERS: PCP Student in an Organized Health Care Education/Training Program; Visit Provider Physician Assistant Medical | DX: G47.33 Obstructive sleep apnea (adult) (pediatric) (principal) | CPT/HCPCS: 95810 ==

== ENCOUNTER → 2024-08-02 21:58 | Outpatient (BNV) | payer OTHER, SELFPAY | PROVIDERS: PCP Student in an Organized Health Care Education/Training Program; Visit Provider Psychiatry & Neurology Neurology | DX: G47.33 Obstructive sleep apnea (adult) (pediatric) (principal) | CPT/HCPCS: 95810 ==

== ENCOUNTER 2024-10-02 12:45 | Outpatient (AMB) | payer OTHER, SELFPAY ==
--- NOTE | 2024-10-02 12:47 | A.OFFVIS_ITS ---
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 handed Luxembourgish speaking male comes for follow up of severe sleep apnea. Home sleep study was done on 01/29/24, AHI was 28 and O2 eitan 70%, he was diagnosed with severe sleep apnea. He continues to have difficulty using his mask, he is unable to adjust pressures and he feels like he is being suffocated. He wants to use his mask, however is unable to due to the pressures. OMAR Compliance Report 06/2024 - 09/24/2024 >4 hours of use 16 days avg total usage 2 hours 8min Median pressures are 9.0cmH20 leaks median 16.0cmH20 AHI is 13.6 He goes to bed at 11pm and gets up at 3-4am, with 1 bathroom break. He is unable to fall back asleep and is exhausted the following day. He gasps for air, and chokes at night, he wakes himself up due to snoring loudly. He wakes up 2-3 times a night and the mask is not on his face. He is a side sleeper, tosses and turns all night. He has bilateral leg cramps, they wake him up from sleep, he denies numbness, tingling, burning. He wakes up with L. sided headaches from occipital to the frontal, pulsating sensation, denies photophobia and phonophobia. He is not triggered by smells, headaches last for one week and the next week he will be headache free. He denies sleep walking, hallucinations and parasomnias. He has HTN, diabetes and BMI is elevated. His mood, diet and memory are stable. [facility] Medical History Obstructive sleep apnea hypopnea, severe Hypersomnia Snoring Leg cramps, sleep related Diabetes mellitus HTN (hypertension) Hyperlipidemia Surgical History Hx of colonoscopy Family History Mother No problems noted. Father Diabetes Depression Cardiovascular disease Social History Household Members: Other Household Members Other:: Siblings, Sister Kendal, brother Drew Housing: Apartment Alcohol intake: never Patient Tobacco Use Status: Former Tobacco user Substance Use Type: Marijuana Review of Systems Const All systems reviewed & are unremarkable except as noted in HPI and below ENT Reports Normal hearing present Neuro Reports Normal hearing present Physical Exam Vital Signs: Last Vital Signs Pulse 74 10/02/24 12:51 BP 150/80 H 10/02/24 12:51 Pulse Ox 96 10/02/24 12:51 Oxygen Delivery Method Room Air 10/02/24 12:51 BMI result Body Mass Index 35.5 Const General: cooperative, comfortable and no acute distress Nutritional Appearance: obese Orientation/consciousness: patient oriented x3 HEENT Head: Yes normal to inspection Face and sinus: Yes face symmetric Mouth: tongue normal Eyes Pupils: Equal, round and reactive pupils present Neck Neck: Yes full ROM and Yes supple Resp Effort & Inspection: normal respiratory effort and able to speak in complete sentences Neuro General: patient oriented x3, moves all extremities and Normal light touch and p ain sensation Cranial nerves: Yes CN's II-XII intact bilaterally, Yes Facial sensation intact/muscles of mastication intact, Yes Equal, round and reactive pupils present, Yes Normal accommodation reflex present, Yes Normal facial strength present, Yes Midline tongue present, Yes Symmetric palate elevation present, Yes Normal hearing present, Yes Ability to bilaterally rotate head present and Yes Ability to bilaterally elevate shoulders present Motor exam (neuro): 5/5 motor strength present throughout Deep tendon reflexes (DTR's): Right triceps reflex intensity grade: 2+, Left triceps reflex intensity grade: 2+, Rt Biceps (C5, C6): 2+, Left biceps reflex intensity grade: 2+, Right brachioradialis reflex intensity grade: 2+, Left brachioradialis reflex intensity grade: 2+, Right patellar reflex intensity grade: 2+, Left patellar reflex intensity grade: 2+, Right ankle reflex intensity grade: 2+ and Left ankle reflex intensity grade: 2+ Coordination: [id number] test normal Psych Affect: normal affect Attitude: cooperative Results Reviewed Results Reviewed: OMAR Compliance Report 06/2024 - 09/24/2024 >4 hours of use 16 days avg total usage 2 hours 8min Median pressures are 9.0cmH20 leaks median 16.0cmH20 AHI is 13.6 Assessment & Plan Assessment & Plan (1) Obstructive sleep apnea hypopnea, severe: Code(s): G47.33 - Obstructive sleep apnea (adult) (pediatric) Category: Medical Plan Headaches unilateral will start Sumatriptan 100mg PO PRN 14 tablets. CPAP Titration of pressures and Mask fitting. F/U in 3 months. Orders: Orders RT PSG in-lab sleep titration Today G47.33 - Obstructive sleep apnea (adult) (pediatric) Patient Instructions: Patient education CPAP compliance, patient has a BMI of 35.5, hypertension and diabetes. Maintaining a strict sleep and wake regiment will help with sleep cycle. Per AHA the #1 modifialbe risk factor of CV events is HTN. Manage good control of BP and Blood sugar control. If you have not heard from the sleep lab, call them. Do not wait until next appt to adjust pressures. Coding Level of Care Code Est Pt Level 4 (52329) Diagnoses Obstructive sleep apnea hypopnea, severe G47.33 Time Spent (min) 30 Comment Worsening Sleep
[2024-10-02 12:51] VITALS: BP 150/80; PULSE 74; O2SAT 96; BMI 35.5
--- OUTSIDE RECORDS SUMMARY | 2024-10-02 13:01 | XMS_ITS | Encounter Summary ---
Author Organization [employer] [facility] Address [address] [place] [address] Care Team Providers Care Float Tender Name Role Phone Tori Castaneda MD Primary Care Provider [phone] Encounter Details Date Type Department Care Team (Latest Contact Info) Description 12/31/2020 Abstract [facility] Dental, Provider, DDS Social History Tobacco Use Types Packs/Day Years Used Date Smoking Tobacco: Never Assessed Sex and Gender Information Value Date Recorded Sex Assigned at Male 06/13/2022 10:17 AM EDT Legal Sex Male 10:17 AM EDT Gender Identity Male 06/13/2022 10:17 AM EDT Sexual Orientation Straight 06/13/2022 10 :17 AM EDT documented as of this encounter Plan of Treatment Upcoming Encounters Date Type Department Care Team (Late st Contact Info) Description 11/22/2024 2:00 PM EDT Office Visit [facility] ADULT DENTAL [address] [place] [address] Stevo Mable [address] [place] [address] documented as of this encounter Visit Diagnoses Not on filedocumented in this encounter Care Teams Float Tender Relationship Specialty Start Date End Date Tori Castaneda MD [address] [place] [address] PCP - General Family Medicine 06/25/12 documented as of this encounter
--- OUTSIDE RECORDS SUMMARY | 2024-10-02 13:01 | XMS_ITS | Encounter Summary ---
Author Organization [employer] Address [address] [place] [address] Care Team Providers Care Fur Storage Clerk Name Role Phone Tori Castaneda MD Primary Care Provider [phone] Reason for Visit * Reason Onset Date Comments Call Back Request 10/03/2023 Encounter Details Date Type Department Care Team ([facility] st Contact Info) Description 10/03/2023 Telephone [facility] [address] [place], [place] [phone] Tori Castaneda MD [address] [place] [address] Call Back Request Social History Tobacco Use Types Packs/Day Years Used Date Smoking Tobacco: Former Cigarettes Passive Smoke Exposure: Past Smokeless Tobacco: Never Alcohol Use Standard Drinks/Week Comments Not Currently 0 (1 standard drink = 0.6 oz pur e alcohol) Depression Answer Date Recorded Patient Health Questionnaire-9 Score 2 01/05/2023 Housing Stability Answer Date Recorded What is your housing situation today? I have alonzo schaefer 09/19/[address] you li ve. Do you have problems with any of the following? None of the above 09/19/2023 Food Insecurity Answer Date Recorded Within the past 12 months, y ou worried that your food would run out before you got money to buy more: Never True 09/19/2023 Within the past 12 months,th e food you bought just didn't last and you didn't have enough money to get more: Never True 01/2024 Transportation Answer Date Recorded In the past 12 months, has l ack of transportation kept you from medical appts, meetings, work or from getting things needed for daily living? No 09/19/2023 Utilities Answer Date Recorded In the past 12 months, has t he electric, gas, oil or water company threatened to shut off services in your home? No 09/19/2023 Depression Answer Date Recorded Patient Health Questionnaire-2 Score 2 01/05/2023 Sex and Gender Information Value Date Recorded Sex Assigned at Male 06/13/2022 10:17 AM EDT Legal Sex Male 10:17 AM EDT Gender Identity Male 06/13/2022 10:17 AM EDT Sexual Orientation Straight 06/13/2022 10 :17 AM EDT documented as of this encounter Miscellaneous Notes * Telephone Encounter - Karen Hollingsworth RN - 10/04/2023 12:59 PM EST Placed call to pt sister and informed of labs ordered by PCP as requested. Pt can go get labs done at pt convenience prior to upcoming appt. * Telephone Encounter - Tori Castaneda MD - 10/04/2023 10:39 AM EST Ordered * Telephone Encounter - Karen Hollingsworth RN - 10/03/2023 11:40 AM EST Please review and advise if lab orders can be placed for routine labs prior to appt. * Telephone Encounter - Damian Parsons - 10/03/2023 11:11 AM EST Tc from patients sister calling to request orders for Lab works and would like to get it done at [facility] documented in this encounter Plan of Treatment Upcoming Encounters Date Type Department Care Team (Late st Contact Info) Description 11/22/2024 2:00 PM EDT Office Visit [facility] ADULT DENTAL [address] [place] [address] Stevo, Mable [address] [place] [address] documented as of this encounter Visit Diagnoses Not on filedocumented in this encounter Additional Health Concerns Assessment Noted Time PHQ-9 Depression Total Score: 2 01/06/20 23 9:58 AM EDT documented as of this encounter Care Teams Fur Storage Clerk Relationship Specialty Start Date End Date Tori Castaneda MD [address] [place] [address] PCP - General Family Medicine 06/25/12 documented as of this encounter
--- OUTSIDE RECORDS SUMMARY | 2024-10-02 13:01 | XMS_ITS | Encounter Summary ---
Author Organization [employer] Address [address] [place] [address] Care Team Providers Care Search And Rescue Officer Name Role Phone Tori Castaneda MD Primary Care Provider [phone] Encounter Details Date Type Department Care Team (Late st Contact Info) Description 02/17/2023 Orders Only [facility] MEDICINE [address] [place], [place] [phone] Melinda Kim LPN Social History Tobacco Use Types Packs/Day Years Used Date Smoking Tobacco: Every Day Cigarettes Passive Smoke Exposure: Past Smokeless Tobacco: Never Alcohol Use Standard Drinks/Week Comments Not Currently 0 (1 standard drink = 0.6 oz pur e alcohol) Depression Answer Date Recorded Patient Health Questionnaire-9 Score 2 01/05/2023 Depression Answer Date Recorded Patient Health Questionnaire-2 Score 2 01/05/2023 Sex and Gender Information Value Date Recorded Sex Assigned at Male 06/13/2022 10:17 AM EDT Legal Sex Male 10:17 AM EDT Gender Identity Male 06/13/2022 10:17 AM EDT Sexual Orientation Straight 06/13/2022 10 :17 AM EDT COVID-19 Exposure Response Date Recorded In the last 10 days, have yo u been in contact with someone who was confirmed or suspected to have Coronavirus/COVID-19? No / Unsure 01/31/2023 8:50 AM EDT documented as of this encounter Plan of Treatment Upcoming Encounters Date Type Department Care Team (Late Contact Info) Description 11/22/2024 2:00 PM EDT Office Visit [facility] ADULT DENTAL [address] [place], [place] [phone] Mable Whiteside [address] [place] [address] documented as of this encounter Visit Diagnoses Not on filedocumented in this encounter Additional Health Concerns Assessment Noted Time PHQ-9 Depression Total Score: 2 01/06/20 23 9:58 AM EDT documented as of this encounter Care Teams Search And Rescue Officer Relationship Specialty Start Date End Date Tori Castaneda MD [address] [place] [address] PCP - General Family Medicine 06/25/12 documented as of this encounter
--- OUTSIDE RECORDS SUMMARY | 2024-10-02 13:01 | XMS_ITS | Encounter Summary ---
Author Organization [employer] Address [address] [place] [address] Care Team Providers Care Customer Success Specialist Name Role Phone Tori Castaneda MD Primary Care Provider [phone] Reason for Visit * Reason Comments Med Refill Encounter Details Date Type Department Care Team ([facility] Contact Info) Description 09/08/2024 Refill [facility] [address] [place], [place] [phone] Tori Castaneda MD [address] [place] [address] Social History Tobacco Use Types Packs/Day Years [...] 11/22/2024 2:00 PM EDT Office Visit [facility] ADULT DENT[facility] [address] [place] [address] Mable Whiteside [address] [place] [address] documented as of this encounter Visit Diagnoses Not on filedocumented in this encounter Additional Health Concerns Assessment Noted Time PHQ-9 Depression Total Score: 2 01/06/20 23 9:58 AM EDT documented as of this encounter Care Teams Customer Success Specialist Relationship Specialty Start Date End Date Tori Castaneda MD [address] [place] [address] PCP - General Family Medicine 06/25/12 documented as of this encounter
--- OUTSIDE RECORDS SUMMARY | 2024-10-02 13:01 | XMS_ITS | Encounter Summary ---
Author Organization [facility] [facility] [employer] Address [address] [place] [address] Care Team Providers Care Soft Sugar Cutter Name Role Phone Tori Castaneda MD Primary Care Provider [phone] Reason for Visit * Reason Comments Med Refill Encounter Details Date Type Department Care Team ([facility] st Contact Info) Description 10/21/2023 Refill [facility] DIABETES/NUTRITION [address] [place] [address] Tori Castaneda MD [address] [place], [place] [phone] Social History Tobacco Use Types Packs/Day Years [...] Description 11/22/2024 2:00 PM EDT Office Visit [facility] ADULT DENTAL [address] [place] [address] Mable Whiteside [address] [place] [address] documented as of this encounter Visit Diagnoses Not on filedocumented in this encounter Additional Health Concerns Assessment Noted Time PHQ-9 Depression Total Score: 2 01/06/20 23 9:58 AM EDT documented as of this encounter Care Teams Soft Sugar Cutter Relationship Specialty Start Date End Date Tori Castaneda MD [address] [place] [address] PCP - General Family Medicine 06/25/12 documented as of this encounter
--- OUTSIDE RECORDS SUMMARY | 2024-10-02 13:01 | XMS_ITS | Clinical Summary ---
Author Organization [employer] Address [address] [place] [address] Care Team Providers Care Dental Service Technician Name Role Phone Tori Castaneda MD Primary Care Provider [phone] Allergies No known active allergies Medications ibuprofen 200 MG tablet Purchasing OTC Active glyBURIDE (Diabeta) 5 MG tablet Take 5 mg by mouth with breakfast and with evening meal. Active TRUEplus Lancets 33G misc TEST BLOOD SUGAR TWICE DAILY 01/06/20 23 Active Aspirin Low Dose 81 MG EC tablet TAKE 1 TABLET BY MOUTH EVERY MORNING 90 tablet 3 11/09/19 24 Active hydroCHLOROthiazi de (HYDRODiuril) 25 MG tablet Take 1 tablet (25 mg) by mouth in the morning. 30 tablet 11/03/19 24 Active rosuvastatin (Crestor) 10 MG tablet Take 1 tablet (10 mg) by mouth in the morning. 30 tablet 11/22/19 24 2024 Active FREESTYLE LITE test strip TEST BLOOD SUGAR TWICE DAILY 100 strip 03/08/20 24 Active TRUEplus Lancets 33G miscIndications:T ype 2 diabetes mellitus without complications (CMS/HCC) TEST BLOOD SUGAR TWICE DAILY 100 each 03/08/20 24 Active lisinopril 20 MG tablet TAKE 1 TABLET BY MOUTH EVERY MORNING 30 tablet 04/16/20 24 Active ergocalciferol (Vitamin D2) 1.25 MG (86603 UT) capsuleIndication s:Hyperlipidemia, unspecified hyperlipidemia type TAKE 1 CAPSULE BY MOUTH ONCE WEEKLY ON MONDAY MORNING 4 capsule 4 04/29/20 24 Active glipiZIDE (Glucotrol) 5 MG tablet TAKE 1 TABLET BY MOUTH TWICE DAILY IN THE MORNING AND IN THE EVENING BEFORE MEALS 180 tablet 3 05/13/20 24 Active Continuous Glucose Orthotic Technician (FreeStyle Barbara 2 Carnation) deviceIndications :Type 2 diabetes mellitus without complication, without long-term current use of insulin ([facility]) Scan sensor every 8 hours 1 each 06/20/20 24 Active Continuous Glucose Sensor (FreeStyle Barbara 2 Sensor) miscIndications:T ype 2 diabetes mellitus without complication, without long-term current use of insulin ([facility]) Apply 1 sensor every 14 days 2 each 2 06/20/20 24 Active glucose blood (FreeStyle Precision Sathya Test) test strip Use to test blood sugar 3 times daily 100 each 12 06/20/20 24 2024 Active empagliflozin (Jardiance) 10 MG TAKE 1 TABLET BY MOUTH EVERY MORNING 90 tablet 09/09/19 25 Active metFORMIN (Glucophage) 1000 MG tablet TAKE 1 TABLET BY MOUTH TWICE DAILY IN THE MORNING AND IN THE EVENING 180 tablet 1 09/13/19 25 Active empagliflozin (Jardiance) 10 MG Take 1 tablet (10 mg) by mouth in the morning. 30 tablet 11 09/19/19 24 2024 Discontinued metFORMIN (Glucophage) 1000 MG tablet TAKE 1 TABLET BY MOUTH TWICE DAILY IN THE MORNING AND IN THE EVENING 180 tablet 1 03/18/20 24 2024 Discontinued Active Problems Problem Noted Date Diagnosed Date Hypersomnia 06/20/2024 Leg cramps, sleep related 06/20/2024 Snoring 06/20/2024 Missing teeth, acquired 12/29/2023 Bleeding gums 12/29/2023 Diabetes due to undrl condition w oth diabetic n euro comp 09/19/2023 Acute intractable headache 08/24/2023 Assessment & Plan (09/12/2023 10:43 AM EST): Patient with chronic headaches, that he associated to elevated BP. Patient is a poor historian, no red flags. Given chronicity, strongly recommended to f/up with PCP. Future Appointments Date Time Provider Department Center 09/19/2023 11:00 AM Tori Castaneda MD [facility] Dental calculus 01/31/2023 Localized gingival recession 01/31/2023 Benign essential hypertension 06/25/2012 Hyperlipidemia 06/25/2012 Type II diabetes mellitus 06/25/2012 Encounters Date Type Department Care Team Description 09/11/2024 Refill [facility] DIABETES/NUTRITION [address] [place] [address] Tori Castaneda MD 09/08/2024 Refill [facility] CHC MED & PEDS [address] [place] [address] Tori Catsaneda MD 07/18/2024 2:00 PM EST Office Visit [facility] ADULT DENTAL [address] [facility] [place] [address] Mable Whiteside Dental calculus (Primary Dx) from Last 3 Months Immunizations Name Administration Dates Next Due Influenza Injectable Quadriv alant Preservative Free IIV4 MDCK 05/27/2020 Influenza injectable quadriv alent IIV4 with preservative 05/21/2019,06/28/2018 Influenza injectable quadriv alent preservative free 05/15/2023,07/13/2022,07/29/2021 Influenza, IIV3, injectable 06/09/2010 Influenza, seasonal, injecta ble, preservative free 06/20/2024 Routehappy SARS-CoV-2 Vaccination 10/28/2020 Pfizer Covid-19 Vaccine 12+ 06/20/2024, Pneumococcal Polysaccharide PPSV23 04/12/2021 Tdap 09/13/2016 Family History Medical History Relation Name Comments Diabetes type II Mother Diabetes type II Sister Kendal Relation Name Status Comments Mother Sister Kendal Alive Social History Tobacco Use Types Packs/Day Years Used Date Smoking Tobacco: Former Cigarettes Passive Smoke Exposure: Past Smokeless Tobacco: Never Tobacco Cessation:Counseling Given: Not Answered Alcohol Use Standard Drinks/Week Comments Not Currently [...] Orientation Straight 06/13/2022 10 :17 AM EDT Last Filed Vital Signs Vital Sign Reading Time Taken Comments Blood Pressure 120/76 07/18/2024 1:47 PM EST Pulse 93 06/20/2024 10:40 AM EST Temperature 36.3 ??C (97.3 ??F) 06/20/2024 10:[address] Respiratory Rate 14 06/20/2024 10:40 AM EST Oxygen Saturation 98% 06/20/2024 10:40 AM EST Inhaled Oxygen Concentration - - Weight 91.6 kg (202 lb) 06/20/2024 10:40 AM EST Height 160 cm (5' 3 ) 06/20/2024 10:40 AM EST Body Mass Index 35.78 06/20/2024 10:40 AM EST Plan of Treatment Upcoming Encounters Date Type Department Care Team (Late st Contact Info) Description 11/22/2024 2:00 PM EDT Office Visit [facility] ADULT DENTAL [address] [place] [address] Yariel Whitesidearis [address] [place] [address] Health Maintenance Due Date Last Done Comments CT Colonography 1976 Colonoscopy 1976 Colorectal Cancer Screening 1976 FIT DNA/Cologuard 1976 FIT 1976 FOBT 1976 HIV Screening 1976 Sigmoidoscopy 1976 Eye Exam 1986 Alcohol/Substance Use Screening 1988 Family Planning (PISQ) 11/05/1991 Hepatitis C Screening 1994 Hepatitis B Vaccines (1 of 3 - 19+ 3-dose series) 11/05/1995 Pneumococcal Vaccine: Pediatrics (0 to 5 Years) and At-Risk Patients (6 to 49) Years) (2 of 2 - PCV) 04/12/2022 04/12/2021 Dental X-Ray: Full Mouth 01/02/2024 021, 01/27/2017, 01/27/2010 Depression Screening 01/06/2024 01/05/2023, 01/06/20 Dental Oral Exam 07/01/2024 12/29/2023, , 03/24/2022, Additional history exists SDOH Screening 09/19/2024 09/19/2023 Diabetes: Urine Protein Screening 11/20/2024 11/21/2023, 10/05/2023 Lipid Panel 11/20/2024 11/21/2023, 05/14, 01/19/2023, Additional history exists Diabetes: Hemoglobin A1C 12/18/2024 024, 11/21/2023, 09/19/2023, Additional history exists Dental X-Ray: Bitewings 12/29/2024 12/29/19 24, 01/31/2023, 03/24/2022, Additional history exists Dental Prophylaxis 01/17/2025 07/18/2024, 0 04/17/2024, 12/29/2023, Additional history exists Diabetes: Foot Exam 01/31/2025 02/01/2024, 02/01/2024, 02/01/2024, Additional history exists Tobacco Screening 07/18/2025 07/18/2024 DTaP/Tdap/Td Vaccines (2 - Td or Tdap) 09/13/2026 09/13/2016 Zoster Vaccines (1 of 2) 2026 RSV Patients and Patients Aged 60 years or older (1 - 1-dose 75+ series) 11/05/2051 COVID-19 Vaccine Completed 06/20/2024, , 07/29/2021, Additional history exists Influenza Vaccine Completed 06/20/2024, , 07/13/2022, Additional history exists HIB Vaccines Aged Out No longer eligi ble based on patient's age to complete this topic HPV Vaccines Aged Out No longer eligi ble based on patient's age to complete this topic Hepatitis A Vaccines Aged Out No long er eligible based on patient's age to complete this topic IPV Vaccines Aged Out No longer eligi ble based on patient's age to complete this topic Meningococcal Vaccine Aged Out No alondra twan eligible based on patient's age to complete this topic RSV under 20 months Aged Out No longe r eligible based on patient's age to complete this topic Rotavirus Vaccines Aged Out No longer eligible based on patient's age to complete this topic Procedures Procedure Name Priority Date/Time Associated Diagnosis Comments PROPHYLAXIS - ADULT Routine 07/18/2024 2 :00 PM EST Dental calculus ORAL HYGIENE INSTRUCTIONS Routine 07/18/2024 2:00 PM EST Dental calculus CASE PRESENTATION, DETAILED AND EXTENSIVE TREATMENT PLANNING Routine 07/18/2024 2:00 PM EST Dental calculus POCT GLYCATED HEMOGLOBIN, TOTAL Routine 06/20/2024 10:43 AM EST Type 2 diabetes mellitus without complication, without long-term current use of insulin ([facility]) BITEWINGS - 4 RADIOGRAPHIC IMAGES Routine 12/29/2023 11:00 AM EDT Dental calculus Bleeding gums PERIODIC ORAL EVALUATION - ESTABLISHED PATIENT Routine 12/29/2023 11:00 AM EDT LIPID PANEL, STANDARD Routine 11/21/2023 8:24 AM EDT Type 2 diabetes mellitus without complication, without long-term current use of insulin (CMS/HCC) ALBUMIN, RANDOM URINE W/CREATININE Routine 11/21/2023 8:21 AM EDT INTRAORAL - COMPLETE SERIES OF RADIOGRAPHIC IMAGES Routine 12/31/2020 12:00 AM EDT from Last 3 Months or Most Recently Relevant to Health Maintenance Results * POCT A1C (06/20/2024 10:43 AM EST) Hemoglobin A1C 6.0 4.0 - 6.0 % QC Media Lot # Comment:[id number] Lot# Expiration Date Comment:01/31/2026 Blood 06/20/2024 10:4 3 AM EST Tori Castaneda MD POINT OF CARE TEST ENTER/EDIT OR DERABLES Final Result * (ABNORMAL) Lipid Panel, Standard (11/21/2023 8:24 AM EDT) Triglycerides 134 <150 mg/dL [facility] Comment:Desirable Triglyceri de: less than 150 mg/dLBorderline High Triglyceride 150-199 mg/dLHigh Triglyceride: 200-499 mg/dLVery High Triglyceride: greater than or equal to 5OO mg/dL Cholesterol 129 <200 mg/dL [facility] Comment:Desirable Cholestero l: less than 200 mg/dLBorderline High Cholesterol: 200-239 mg/dLHigh Cholesterol: greater than 239 mg/dL LDL Cholesterol Calculated 64 <100 mg/dL [facility] Comment:Desirable LDL: less than 100 mg/dLNear Optimal/Above Optimal LDL: 110- 129 mg/dLBorderline High LDL: 130-159 mg/dLHigh LDL: 160-189 mg/dLVery High LDL: greater than or equal to 190 mg/dL HDL Cholesterol 39(L) >40 mg/dL [facility] Comment:Desirable HDL: great er than 40 mg/dL Note: This HDL assay may give artificially low results in patients with liver disease. Blood Venous blood specimen / Unknown 11/21/2023 8:24 AM EDT 11/21/2023 11:20 AM EDT Tori Castaneda MD LAB BLOOD ORDERABLES Final Resul t [facility] [address] [place], [place] [phone] * Albumin, Random Urine W/Creatinine (11/21/2023 8:21 AM EDT) Creatinine, Urine 65.77 mg/dL [facility] Microalbumin Urine 7.0 mg/L [facility] Microalbum Creatinine Ratio Ur 10.6 <30 ug/mg cr [facility] Comment:Albumin/Creatinine R atio Reference Ranges: Normal: < 30 ug/mg creatinine Microalbuminuria: 30 - 300 ug/mg creatinineClinical Albuminuria: > 300 ug/mg creatinine 11/21/2023 8:21 AM EDT 11/21/2023 11:20 AM EDT us Tori Castaneda MD LAB URINE ORDERABLES Final Resul t [facility] [address] [place] [address] [phone] from Last 3 Months or Most Recently Relevant to Health Maintenance Insurance [facility] - [facility] * Guarantor: Donaldo Benson Account Type Relation to Patient Date of Phone Billing Address Personal/Family Self [address] [place] [address] * Guarantor: Donaldo Benson Account Type Relation to Patient Date of Phone Billing Address Personal/Family Self [address] [place] [address] * Guarantor: Donaldo Benson Account Type Relation to Patient Date of Phone Billing Address Personal/Family Self [address] [place] [address] Care Teams Dental Service Technician Relationship Specialty Start Date End Date Tori Castaneda MD [address] [place] [id number] PCP - General Family Medicine 06/25/12
--- OUTSIDE RECORDS SUMMARY | 2024-10-02 13:01 | XMS_ITS | Encounter Summary ---
Demographics Address [address] [place] [address] Home Phone Work Phone Mobile Phone Preferred Language es Marital Status Single Oriental Orthodox Affiliation Unknown Race White Ethnic Group or Author Organization [employer] Address [address] [place] [address] Care Team Providers Care Stonecutter Hand Name Role Phone Tori Castaneda MD Primary Care Provider [phone] Encounter Details Date Type Department Care Team (Late st Contact Info) Description 01/01/2024 Orders Only [facility] CHC MED & PEDS [address] [place], [place] [phone] ProviderAnnamaria MD Social History Tobacco Use Types Packs/Day Years [...] Description 11/22/2024 2:00 PM EDT Office Visit [facility] ADULT DENTAL [address] [place] [address] Stevo, Mable [address] [place] [address] documented as of this encounter Procedures Procedure Name Priority Date/Time Associated Diagnosis Comments VITAMIN D 25 HYDROXY Routine 12/21/2023 11:21 AM EDT TSH Routine 12/21/2023 11:21 AM EDT T4 (THYROXINE), TOTAL Routine 12/21/2023 11:21 AM EDT FOLATE, SERUM Routine 12/21/2023 11:21 AM EDT FERRITIN Routine 12/21/2023 11:21 AM EDT VITAMIN B12 Routine 12/21/2023 11:21 AM EDT documented in this encounter Results * Vitamin B12 (12/21/2023 11:21 AM EDT) Blood Venous blood specimen / Unknown Historical Provider MD LAB BLOOD ORDERABLES Radha l Result * TSH (12/21/2023 11:21 AM EDT) Blood Venous blood specimen / Unknown Historical Provider MD LAB BLOOD ORDERABLES Radha l Result * T4 (Thyroxine), Total (12/21/2023 11:21 AM EDT) Blood Venous blood specimen / Unknown Historical Provider MD LAB BLOOD ORDERABLES Radha l Result * Ferritin (12/21/2023 11:21 AM EDT) Blood Venous blood specimen / Unknown [facility] Provider MD LAB BLOOD ORDERABLES Radha l Result * Vitamin D 25 hydroxy (12/21/2023 11:21 AM EDT) Blood Venous blood specimen / Unknown Result [facility] Provider LAB BLOOD ORDERABLES Radha l Result * Folate, Serum (12/21/2023 11:21 AM EDT) Blood Venous blood specimen / Unknown Result [facility] Provider LAB BLOOD ORDERABLES Radha l Result documented in this encounter Visit Diagnoses Not on filedocumented in this encounter Additional Health Concerns Assessment Noted Time PHQ-9 Depression Total Score: 2 01/06/20 23 9:58 AM EDT documented as of this encounter Care Teams Stonecutter Hand Relationship Specialty Start Date End Date Tori Castaneda MD [address] [place] [id number] PCP - General Family Medicine 06/25/12 documented as of this encounter
--- OUTSIDE RECORDS SUMMARY | 2024-10-02 13:01 | XMS_ITS | Encounter Summary ---
Author Organization [employer] Address [address] [place] [address] Care Team Providers Care Collection Support Specialist Name Role Phone Tori Castaneda MD Primary Care Provider [phone] Reason for Visit * Reason Comments Med Refill Encounter Details Date Type Department Care Team ([facility] st Contact Info) Description 09/11/2024 Refill [facility] DIABETES/NUTRITION [address] [place] [address] Tori Castaneda MD [address] [place], [place] [phone] Social History Tobacco Use Types Packs/Day Years [...] Description 11/22/2024 2:00 PM EDT Office Visit [facility] ADULT DENTAL [address] [place] [address] Mable Whiteside [address] [place] [address] documented as of this encounter Visit Diagnoses Not on filedocumented in this encounter Additional Health Concerns Assessment Noted Time PHQ-9 Depression Total Score: 2 01/06/20 23 9:58 AM EDT documented as of this encounter Care Teams Collection Support Specialist Relationship Specialty Start Date End Date Tori Castaneda MD [address] [place] [address] PCP - General Family Medicine 06/25/12 documented as of this encounter
--- OUTSIDE RECORDS SUMMARY | 2024-10-02 13:01 | XMS_ITS | Encounter Summary ---
Author Organization [employer] [facility] Address [address] [place] [address] Care Team Providers Care Pecan Sheller Name Role Phone Tori Castaneda MD Primary Care Provider [phone] Encounter Details Date Type Department Care Team (Latest Contact Info) Description 03/24/2022 Abstract [facility] CONVERSIONS Dental, Provider, DDS Social History Tobacco [...] Description 11/22/2024 2:00 PM EDT Office Visit [facility] ADULT DENTAL [address] [place] [address] Stevo Mable [address] [place] [address] documented as of this encounter Visit Diagnoses Not on filedocumented in this encounter Care Teams Pecan Sheller Relationship Specialty Start Date End Date Tori Castaneda MD [address] [place] [address] PCP - General Family Medicine 06/25/12 documented as of this encounter
== END 2024-10-02 13:32 | disposition home or self-care (01) ==
PROVIDERS: PCP Student in an Organized Health Care Education/Training Program; Visit Provider Physician Assistant Medical
DX: G47.33 Obstructive sleep apnea (adult) (pediatric) (principal)
CPT/HCPCS: 99214

== ENCOUNTER → 2024-10-02 12:45 | Outpatient (BNVA) | payer OTHER, SELFPAY | PROVIDERS: PCP Student in an Organized Health Care Education/Training Program; Visit Provider Physician Assistant Medical | DX: G47.33 Obstructive sleep apnea (adult) (pediatric) (principal); Z99.89 Dependence on other enabling machines and devices | CPT/HCPCS: 99212 ==

== ENCOUNTER → 2024-10-30 19:30 | Outpatient (REF) | payer OTHER, SELFPAY | LOC: HO.SL 19:30 | PROVIDERS: PCP Student in an Organized Health Care Education/Training Program; Visit Provider Physician Assistant Medical | DX: G47.33 Obstructive sleep apnea (adult) (pediatric) (principal) | CPT/HCPCS: 95811 ==

== ENCOUNTER → 2024-10-30 22:08 | Outpatient (BNV) | payer OTHER, SELFPAY | PROVIDERS: PCP Student in an Organized Health Care Education/Training Program; Visit Provider Psychiatry & Neurology Neurology | DX: G47.33 Obstructive sleep apnea (adult) (pediatric) (principal) | CPT/HCPCS: 95811 ==

== ENCOUNTER 2024-12-24 08:11 | Outpatient (REF) | payer OTHER, SELFPAY ==
--- OUTSIDE RECORDS SUMMARY | 2024-12-24 08:16 | XMS_ITS | Clinical Summary ---
Author Organization [employer] Address [address] [facility] 7t [place] [address] Care Team Providers Care Mini Lab Operator Name Role Phone Tori Castaneda MD Primary Care Provider Allergies No known active allergies Medications ibuprofen 200 MG tablet Purchasing OTC Active glyBURIDE (Diabeta) 5 MG tablet Take 5 mg by mouth with breakfast and with evening meal. Active TRUEplus Lancets 33G misc TEST BLOOD SUGAR TWICE DAILY 01/06/20 23 Active FREESTYLE LITE test strip TEST BLOOD SUGAR TWICE DAILY 100 strip 11 03/08/20 24 Active TRUEplus Lancets 33G miscIndications:T ype 2 diabetes mellitus without complications ([facility]) TEST BLOOD SUGAR TWICE DAILY 100 each 11 03/08/20 24 Active ergocalciferol (Vitamin D2) 1.25 MG (17257 UT) capsuleIndication s:Hyperlipidemia, unspecified hyperlipidemia type TAKE 1 CAPSULE BY MOUTH ONCE WEEKLY ON MONDAY MORNING 4 capsule 4 04/29/20 24 Active glipiZIDE (Glucotrol) 5 MG tablet TAKE 1 TABLET BY MOUTH TWICE DAILY IN THE MORNING AND IN THE EVENING BEFORE MEALS 180 tablet 3 05/13/20 24 Active Continuous Glucose Industrial Sociologist (FreeStyle Barbara 2 Gilby) deviceIndications :Type 2 diabetes mellitus without complication, without long-term current use of insulin ([facility]) Scan sensor every 8 hours 1 each 06/20/20 24 Active Continuous Glucose Sensor (FreeStyle Barbara 2 Sensor) miscIndications:T ype 2 diabetes mellitus without complication, without long-term current use of insulin ([facility]) Apply 1 sensor every 14 days 2 each 2 06/20/20 24 Active glucose blood (FreeStyle Precision Sathya Test) test strip Use to test blood sugar 3 times daily 100 each 12 06/20/20 24 2024 Active metFORMIN (Glucophage) 1000 MG tablet TAKE 1 TABLET BY MOUTH TWICE DAILY IN THE MORNING AND IN THE EVENING 180 tablet 1 09/13/19 25 Active hydroCHLOROthiazi de (HYDRODiuril) 25 MG tablet TAKE 1 TABLET BY MOUTH EVERY MORNING 30 tablet 11 10/08/19 25 Active lisinopril 20 MG tablet TAKE 1 TABLET BY MOUTH EVERY MORNING 30 tablet 5 10/11/19 25 Active rosuvastatin (Crestor) 10 MG tablet TAKE 1 TABLET BY MOUTH EVERY MORNING 30 tablet 11 11/05/19 25 Active Aspirin Low Dose 81 MG EC tablet TAKE 1 TABLET BY MOUTH EVERY MORNING 90 tablet 3 11/08/19 25 Active Jardiance 10 MG TAKE 1 TABLET BY MOUTH EVERY MORNING 90 tablet 12/06/19 25 Active empagliflozin (Jardiance) 10 MG TAKE 1 TABLET BY MOUTH EVERY MORNING 90 tablet 09/09/19 25 2024 Discontinued Active Problems Problem Noted Date [...] Center 09/19/2023 11:00 AM Tori Castaneda MD [facility] Dental calculus 01/31/2023 Localized gingival recession 01/31/2023 Benign essential hypertension 06/25/2012 Hyperlipidemia 06/25/2012 Type II diabetes mellitus 06/25/2012 Encounters Date Type Department Care Team Description 12/12/2024 11:15 AM EDT Office Visit [facility] [address] [place] [address] Tori Castaneda MD Type 2 diabetes mellitus without complication, without long-term current use of insulin ([facility]) (Primary Dx); Benign essential hypertension; Mixed hyperlipidemia; Encounter for immunization; Encounter for annual wellness visit 12/12/2024 Travel 12/05/2024 Patient Outreach [facility] MEDICINE [address] [place] [address] Tori Castaneda MD Pre-visit Planning (SDOH screening unable to be completed) 12/04/2024 Refill [facility] [address] [place] [address] Julia Coppola FNP 11/07/2024 Refill [facility] DIABETES/NUTRITION [address] [place] [address] Tori Castaneda MD 11/02/2024 Refill [facility] P[facility] [address] [place] [address] Tori Castaneda MD 10/10/2024 Refill [facility] DIABETES/NUTRITION [address] [place] [address] Tori Castaneda MD 10/06/2024 Refill [facility] DIABETES/NUTRITION [address] [place] [address] Tori Castaneda MD from Last 3 Months Immunizations Name Administration Dates Next Due Influenza Injectable Quadriv alant Preservative Free IIV4 MDCK 05/27/2020 Influenza injectable quadriv alent IIV4 with preservative 05/21/2019,06/28/2018 Influenza injectable quadriv alent preservative free 05/15/2023,07/13/2022,07/29/2021 Influenza, IIV3, injectable 06/09/2010 Influenza, seasonal, injecta ble, preservative free 06/20/2024 [employer] SARS-CoV-2 Vaccination 10/28/2020 Pfizer Covid-19 Vaccine 12+ 06/20/2024, Pneumococcal Conjugate PCV 20 12/12/2024 Pneumococcal Polysaccharide PPSV23 04/12/2021 Tdap 09/13/2016 Family [...] Date Recorded Patient Health Questionnaire-9 Score 2 12/12/2024 Patient Health Questionnaire-9 Score 2 12/12/2024 Last PHQ-9: Questionnaire Data Not on file 0 12/12/2024 Housing Stability Answer Date Recorded What is your housing situation today? I have alonzo schaefer 12/12/[address] you li ve. Do you have problems with any of the following? None of the above 12/12/2024 Food Insecurity Answer Date Recorded Within the past 12 months, y ou worried that your food would run out before you got money to buy more: Never True 12/12/2024 Within the past 12 months,th e food you bought just didn't last and you didn't have enough money to get more: Never True 08/2024 Transportation Answer Date Recorded In the past 12 months, has l ack of transportation kept you from medical appts, meetings, work or from getting things needed for daily living? No 12/12/2024 Utilities Answer Date Recorded In the past 12 months, has t he electric, gas, oil or water company threatened to shut off services in your home? No 12/12/2024 Depression Answer Date Recorded Patient Health Questionnaire-2 Score 2 12/12/2024 Internet Access Answer Date Recorded Internet Access Q1 No 12/12/2024 Internet Access Q2 I do not want or need it 08/2024 Sex and Gender Information Value Date Recorded Sex Assigned at Male 06/13/2022 10:17 AM EDT Legal Sex Male 10:17 AM EDT Gender Identity Male 06/13/2022 10:17 AM EDT Sexual Orientation Straight 06/13/2022 10 :17 AM EDT Last Filed Vital Signs Vital Sign Reading Time Taken Comments Blood Pressure 152/92 12/12/2024 11:17 AM EDT Pulse 98 12/12/2024 11:17 AM EDT Temperature 36.6 ??C (97.9 ??F) 12/12/2024 11:17 AM E DT Respiratory Rate 20 12/12/2024 11:17 AM EDT Oxygen Saturation 98% 06/20/2024 10:40 AM EST Inhaled Oxygen Concentration - - Weight 87.1 kg (192 lb) 12/12/2024 11:17 AM EDT Height 154.3 cm (5' 0.75 ) 12/12/2024 11:17 AM E DT Body Mass Index 36.58 12/12/2024 11:17 AM EDT Plan of Treatment Upcoming Encounters Date Type Department Care Team (Late st Contact Info) Description 06/24/2025 10:00 AM EST Office Visit [facility] ADULT DENTAL [address] [place] [address] Stevo, Mable [address] [place] [address] Health Maintenance Due Date Last Done Comments CT Colonography 1975 Colonoscopy 1976 Colorectal Cancer Screening 1976 FIT DNA/Cologuard 1976 FIT 1976 FOBT 1976 HIV Screening 1975 Sigmoidoscopy 1976 Eye Exam 1986 Family Planning (PISQ) 11/05/1991 Hepatitis C Screening 1994 Hepatitis B Vaccines (1 of 3 - 19+ 3-dose series) 11/05/1995 Dental X-Ray: Full Mouth 01/02/2024 021, 01/27/2017, 01/27/2010 Dental Oral Exam 07/01/2024 12/29/2023, , 03/24/2022, Additional history exists Diabetes: Urine Protein Screening 11/20/2024 11/21/2023, 10/05/2023 Lipid Panel 11/20/2024 11/21/2023, 05/14, 01/19/2023, Additional history exists Diabetes: Hemoglobin A1C 12/18/2024 024, 11/21/2023, 09/19/2023, Additional history exists Dental X-Ray: Bitewings 12/29/2024 12/29/19 24, 01/31/2023, 03/24/2022, Additional history exists Dental Prophylaxis 01/17/2025 07/18/2024, 0 04/17/2024, 12/29/2023, Additional history exists Diabetes: Foot Exam 01/31/2025 02/01/2024, 02/01/2024, 02/01/2024, Additional history exists Alcohol/Substance Use Screening 12/12/2025 12/12/2024 Depression Screening 12/12/2025 12/12/2024, 12/13/19 25 SDOH Screening 12/12/2025 12/12/2024 Tobacco Screening 12/12/2025 12/12/2024 DTaP/Tdap/Td Vaccines (2 - Td or Tdap) 09/13/2026 09/13/2016 Zoster Vaccines (1 of 2) 2026 RSV Patients and Patients Aged 60 years or older (1 - 1-dose 75+ series) 11/05/2051 COVID-19 Vaccine Completed 06/20/2024, , 07/29/2021, Additional history exists Influenza Vaccine Completed 06/20/2024, , 07/13/2022, Additional history exists Pneumococcal Vaccine: Pediatrics (0 to 5 Years) and At-Risk Patients (6 to 49) Years) Completed 12/12/2024, 04/12/2021 HIB Vaccines Aged Out No longer eligi [...] Procedure Name Priority Date/Time Associated Diagnosis Comments POCT GLUCOSE Routine 12/12/2024 11:29 AM EDT Type 2 diabetes mellitus without complication, without long-term current use of insulin ([facility]) PROPHYLAXIS - ADULT Routine 07/18/2024 2 :00 PM EST Dental calculus POCT GLYCATED HEMOGLOBIN, TOTAL Routine 06/20/2024 10:43 AM EST Type 2 diabetes mellitus without complication, without long-term current use of insulin ([facility]) BITEWINGS - 4 RADIOGRAPHIC IMAGES Routine 12/29/2023 11:00 AM EDT Dental calculus Bleeding gums PERIODIC ORAL EVALUATION - ESTABLISHED PATIENT Routine 12/29/2023 11:00 AM EDT LIPID PANEL, STANDARD Routine 11/21/2023 8:24 AM EDT Type 2 diabetes mellitus without complication, without long-term current use of insulin ([facility]) ALBUMIN, RANDOM URINE W/CREATININE Routine 11/21/2023 8:21 AM EDT INTRAORAL - COMPLETE SERIES OF RADIOGRAPHIC IMAGES Routine 12/31/2020 12:00 AM EDT from Last 3 Months or Most Recently Relevant to Health Maintenance Results * POCT Glucose (12/12/2024 11:29 AM EDT) Glucose Blood, POC 110 60 - 200 mg/dL [employer] Media Lot # [id number] Lot# Expiration Date Blood Capillary blood specimen / Unknown 12/12/2024 11:29 AM EDT us Tori Castaneda MD POINT OF CARE TEST ENTER/EDIT OR DERABLES Final Result * POCT A1C (06/20/2024 10:43 AM EST) Hemoglobin A1C 6.0 4.0 - 6.0 % QC Media Lot # Comment:[id number] Lot# Expiration Date Comment:01/31/2026 Blood 06/20/2024 10:4 3 AM EST us Tori Castaneda MD POINT OF CARE TEST ENTER/EDIT OR DERABLES Final Result * (ABNORMAL) Lipid Panel, Standard (11/21/2023 8:24 AM EDT) Triglycerides 134 <150 mg/dL [facility] Comment:Desirable Triglyceri de: less than 150 mg/dLBorderline High Triglyceride 150-199 mg/dLHigh Triglyceride: 200-499 mg/dLVery High Triglyceride: greater than or equal to 5OO mg/dL Cholesterol 129 <200 mg/dL [facility] Comment:Desirable Cholestero l: less than 200 mg/dLBorderline High Cholesterol: 200-239 mg/dLHigh Cholesterol: greater than 239 mg/dL LDL Cholesterol Calculated 64 <100 mg/dL [facility] Comment:Desirable LDL: less than 100 mg/dLNear Optimal/Above Optimal LDL: 110- 129 mg/dLBorderline High LDL: 130-159 mg/dLHigh LDL: 160-189 mg/dLVery High LDL: greater than or equal to 190 mg/dL HDL Cholesterol 39(L) >40 mg/dL [facility] Comment:Desirable HDL: great er than 40 mg/dL Note: This HDL assay may give artificially low results in patients with liver disease. Blood Venous blood specimen / Unknown 11/21/2023 8:24 AM EDT 11/21/2023 11:20 AM EDT Tori Castaneda MD LAB BLOOD ORDERABLES Final Resul t Performing Organization Address City/[facility] Co de Phone Number [facility] [address] [place] [phone] * Albumin, Random Urine W/Creatinine (11/21/2023 8:21 AM EDT) Creatinine, Urine 65.77 mg/dL [facility] Microalbumin Urine 7.0 mg/L [facility] Microalbum Creatinine Ratio Ur 10.6 <30 ug/mg cr [facility] Comment:Albumin/Creatinine R atio Reference Ranges: Normal: < 30 ug/mg creatinine Microalbuminuria: 30 - 300 ug/mg creatinineClinical Albuminuria: > 300 ug/mg creatinine 11/21/2023 8:21 AM EDT 11/21/2023 11:20 AM EDT Tori Castaneda MD LAB URINE ORDERABLES Final Resul t Performing Organization Address [facility]/ZIP Co de Phone Number [facility] [address] [place] [phone] from Last 3 Months or Most Recently Relevant to Health Maintenance Insurance * Guarantor: Donaldo Benson Account Type Relation to Patient Date of Phone Billing Address Personal/Family Self [address] [place] [address] [facility] < 66 [facility] * Guarantor: Donaldo Benson Account Type Relation to Patient Date of Phone Billing Address Personal/Family Self [address] [place] [address] * Guarantor: Donaldo Benson Account Type Relation to Patient Date of Phone Billing Address Personal/Family Self [address] [place] [address] Care Teams Mini Lab Operator Relationship Specialty Start Date End Date Tori Castaneda MD [address] [place] [address] PCP - General Family Medicine 06/25/12
--- OUTSIDE RECORDS SUMMARY | 2024-12-24 08:16 | XMS_ITS | Encounter Summary ---
Author Organization [employer] Address [address] [facility] [address] [place] [address] Care Team Providers Care Nut Roaster Helper Name Role Phone Tori Castaneda MD Primary Care Provider [phone] Reason for Visit * Reason Comments Med Refill Encounter Details Date Type Department Care Team ([facility] st Contact Info) Description 10/21/2023 Refill [facility] DIABETES/NUTRITION [address] [place] [address] Tori Castaneda MD [address] [place], [place] [phone] Social History Tobacco Use Types Packs/Day Years [...] Description 06/24/2025 10:00 AM EST Office Visit [facility] ADULT DENTAL [address] [place] [address] Mable Whiteside [address] [place] [address] documented as of this encounter Visit Diagnoses Not on filedocumented in this encounter Additional Health Concerns Assessment Noted Time PHQ-9 Depression Total Score: 2 01/06/20 23 9:58 AM EDT documented as of this encounter Care Teams Nut Roaster Helper Relationship Specialty Start Date End Date Tori Castaneda MD [address] [place] [address] PCP - General Family Medicine 06/25/12 documented as of this encounter
--- OUTSIDE RECORDS SUMMARY | 2024-12-24 08:16 | XMS_ITS | Encounter Summary ---
Author Organization [employer] Address [address] [facility] [address] [place] [address] Care Team Providers Care Dishtank Operator Name Role Phone Tori Castaneda MD Primary Care Provider [phone] Reason for Visit * Reason Onset Date Comments Call Back Request 10/03/2023 Encounter Details Date Type Department Care Team ([facility] st Contact Info) Description 10/03/2023 Telephone [facility] MEDICINE [address] [place], [place] [phone] Tori Castaneda MD [address] [place] [address] Call Back Request Social History Tobacco Use [...] would like to get it done at [facility] documented in this encounter Plan of Treatment Upcoming Encounters Date Type Department Care Team (Late st Contact Info) Description 06/24/2025 10:00 AM EST Office Visit [facility] ADULT DENTAL [address] [place] [address] Stevo, Mable [address] [place] [address] documented as of this encounter Visit Diagnoses Not on filedocumented in this encounter Additional Health Concerns Assessment Noted Time PHQ-9 Depression Total Score: 2 01/06/20 23 9:58 AM EDT documented as of this encounter Care Teams Dishtank Operator Relationship Specialty Start Date End Date Tori Castaneda MD [address] [place] [address] [place] [address] PCP - General Family Medicine 06/25/12 documented as of this encounter
--- OUTSIDE RECORDS SUMMARY | 2024-12-24 08:16 | XMS_ITS | Encounter Summary ---
Author Organization [employer] [facility] Address [address] [facility] 7t [place] [address] Care Team Providers Care Instrument Engineer Name Role Phone Tori Castaneda MD Primary Care Provider [phone] Encounter Details Date Type Department Care Team (Latest Contact Info) Description 12/31/2020 Abstract [facility] CONVERSIONS Dental, Provider, DDS Social History Tobacco [...] Description 06/24/2025 10:00 AM EST Office Visit [facility] ADULT DENTAL [address] [place] [address] Stevo, Mable [address] [place] [address] documented as of this encounter Visit Diagnoses Not on filedocumented in this encounter Care Teams Instrument Engineer Relationship Specialty Start Date End Date Tori Castaneda MD [address] [place] [address] PCP - General Family Medicine 06/25/12 documented as of this encounter
--- OUTSIDE RECORDS SUMMARY | 2024-12-24 08:16 | XMS_ITS | Encounter Summary ---
Author Organization [employer] Address [address] [facility] [address] [place] [address] Care Team Providers Care Ambulette Driver Name Role Phone Tori Castaneda MD Primary Care Provider [phone] Encounter Details Date Type Department Care Team (Late st Contact Info) Description 02/17/2023 Orders Only [facility] MEDICINE [address] [place], [place] [phone] Melinda Kim LPN Social History Tobacco Use [...] Description 06/24/2025 10:00 AM EST Office Visit [facility] ADULT DENTAL [address] [place], [place] [phone] Mable Whiteside [address] [place], [place] [phone] documented as of this encounter Visit Diagnoses Not on filedocumented in this encounter Additional Health Concerns Assessment Noted Time PHQ-9 Depression Total Score: 2 01/06/20 23 9:58 AM EDT documented as of this encounter Care Teams Ambulette Driver Relationship Specialty Start Date End Date Tori Castaneda MD [address] [facility] [place] [address] PCP - General Family Medicine 06/25/12 documented as of this encounter
--- OUTSIDE RECORDS SUMMARY | 2024-12-24 08:16 | XMS_ITS | Encounter Summary ---
Author Organization [employer] Address [address] [facility] [address] [place] [address] Care Team Providers Care Spike Machine Heater Name Role Phone Tori Castaneda MD Primary Care Provider [phone] Encounter Details Date Type Department Care Team (Late st Contact Info) Description 01/01/2024 Orders Only [facility] MED & PEDS [address] [place], [place] [phone] Provider, MD Annamaria Social History Tobacco Use Types Packs/Day Years [...] Description 06/24/2025 10:00 AM EST Office Visit [facility] ADULT DENTAL [address] [place], [place] [phone] Stevo, Mable [address] [place], [place] [phone] documented as of this encounter Procedures Procedure [...] EDT) Blood Venous blood specimen / Unknown [facility] Provider MD LAB BLOOD ORDERABLES Radha l Result * TSH (12/21/2023 11:21 AM EDT) Blood Venous blood specimen / Unknown Historical Provider MD LAB BLOOD ORDERABLES Radha l Result * T4 (Thyroxine), Total (12/21/2023 11:21 AM EDT) Blood Venous blood specimen / Unknown [facility] Provider MD LAB BLOOD ORDERABLES Radha l Result * Ferritin (12/21/2023 11:21 AM EDT) Blood Venous blood specimen / Unknown [facility] Provider MD LAB BLOOD ORDERABLES Radha l Result * Vitamin D 25 hydroxy (12/21/2023 11:21 AM EDT) Blood Venous blood specimen / Unknown [facility] Provider LAB BLOOD ORDERABLES Radha l Result * Folate, Serum (12/21/2023 11:21 AM EDT) Blood Venous blood specimen / Unknown Result [facility] Provider LAB BLOOD ORDERABLES Radha l Result documented in this encounter Visit Diagnoses Not on filedocumented in this encounter Additional Health Concerns Assessment Noted Time PHQ-9 Depression Total Score: 2 01/06/20 23 9:58 AM EDT documented as of this encounter Care Teams Spike Machine Heater Relationship Specialty Start Date End Date Tori Castaneda MD [address] [place] [phone] PCP - General Family Medicine 06/25/12 documented as of this encounter
--- OUTSIDE RECORDS SUMMARY | 2024-12-24 08:17 | XMS_ITS | Encounter Summary ---
Author Organization [facility] [facility] Address [address] [facility] 7t [place] [address] Care Team Providers Care Anode Builder Name Role Phone Tori Castaneda MD Primary Care Provider [phone] Encounter Details Date Type Department Care Team (Latest Contact Info) Description 03/24/2022 Abstract [facility] CONVERSIONS Dental, Provider, DDS Social History [...] Description 06/24/2025 10:00 AM EST Office Visit [facility] ADULT DENTAL [address] [place] [address] Stevo, Mable [address] [place] [address] documented as of this encounter Visit Diagnoses Not on filedocumented in this encounter Care Teams Anode Builder Relationship Specialty Start Date End Date Tori Castaneda MD [address] [place] [address] PCP - General Family Medicine 06/25/12 documented as of this encounter
[2024-12-24 11:36] LABS: Hemoglobin 14.1 g/dl (14.0-18.0); Mean Corpuscular Hemoglobin 26.3 pg (27.0-33.0); Mean Corpuscular Volume 82.1 fL (80.0-98.0); Mean Platelet Volume 11.5 fL (9.4-12.4); Platelet Count 237 X10*3/uL (160-400); Red Blood Count 5.36 X10*6/uL (4.60-5.80); Red Cell Distribution Width 15.9 % (11.0-16.0)
[2024-12-24 11:42] LABS: Estimated Average Glucose 126 mg/dL; Hemoglobin A1C 155.3677 umol/L; Total Hemoglobin (HGBA1C) 3722.7297 umol/L
[2024-12-24 13:15] LABS: Alanine Aminotransferase 34 U/L (0-40); Albumin Level 4.6 g/dL (3.5-5.0); Alkaline Phosphatase 46 U/L (39-117); Anion Gap 16 (12-20); Aspartate Amino Transferase 39 U/L (5-37); Bilirubin Direct 0.3 mg/dL (0.0-0.5); Bilirubin Total 0.8 mg/dL (0.0-1.0); Blood Urea Nitrogen 13 mg/dL (9-16); Calcium 9.5 mg/dL (8.4-10.2); Carbon Dioxide 27 mmol/L (22-29); Chloride 101 mmol/L (96-108); Cholesterol 135 mg/dL (<200); Estimated Glomerular Filt Rate > 60; Glucose Random 112 mg/dL (60-115); HDL Cholesterol 50 mg/dL (>40); LDL Cholesterol Calculated 72 mg/dL (<100); Potassium 3.7 mmol/L (3.3-5.1); Sodium 140 mmol/L (135-145); Total Protein 7.6 g/dL (6.5-8.0); Triglycerides 69 mg/dL (<150)
[2024-12-24 13:16] LABS: Ferritin 18 ng/mL (20-250); TSH reflex Free T4 5.27 uIU/mL (0.32-4.0)
[2024-12-24 14:00] LABS: Free T4 (Free Thyroxine) 0.86 ng/dL (0.71-1.85)
== END 2024-12-24 08:12 | disposition home or self-care (01) ==
LOC: HO.HHCL 08:11
PROVIDERS: Physician Assistant Medical; Visit Provider Student in an Organized Health Care Education/Training Program
DX: G47.33 Obstructive sleep apnea (adult) (pediatric) (principal); G47.10 Hypersomnia, unspecified; G47.62 Sleep related leg cramps; G25.81 Restless legs syndrome; I10 Essential (primary) hypertension; E11.9 Type 2 diabetes mellitus without complications
CPT/HCPCS: 36415; 80048; 80061; 80076; 82728; 83036; 84439; 84443; 85027